=== PATIENT | male | born 1970 | race Caucasian/White ===

== ENCOUNTER 2016-08-05 17:17 | Emergency (ER) | payer OTHER ==
[~2016-08-05] VITALS: Ht 182.9 cm; Wt 130.0 kg
[~2016-08-05 17:17] MED LIST: 1-ME1LIQ PO; ATEN-104 PO; ATOR80TA PO; CITA-48 PO; GLIP10TA6 PO; GLUC1000 PO; LAMO25 PO; VITA-13
[2016-08-05 17:32] VITALS: BP 122/84; PULSE 97; RESP 18; TEMP 97.8; O2SAT 96
--- NOTE | 2016-08-05 17:40 | PD ---
HPI Chief Complaint: Chest Pain Time Seen by Provider: 17:31 Travel History International Travel<30 days: No Contact w/Intl Traveler<30days: No Traveled to known affect area: No History of Present Illness HPI 46-year-old male with history of hypertension, hyperlipidemia, type 2 diabetes, 1 pack per day smoker, here for evaluation of chest pain, lightheadedness, dizziness. Symptoms started about 45 minutes prior to arrival. Chest pain is substernal, radiates to his left shoulder and down his left arm, constant, 7 out of 10, described as a tightness, no modifying factors. No dyspnea. No history of DVT or PE. 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 No paresthesias or motor deficits. No fevers, chills, cough, or recent illness. He took aspirin 81 mg today. PFSH Past Medical History Cardiovascular Problems: Yes High Cholesterol: Yes Diabetes: Yes Diminished Hearing: No Endocrine: Yes Gastrointestinal Disorders: Yes (PANCREATITIS AUGUST 2013) Genitourinary: No Hepatitis: No Hiatal Hernia: No Hypertension: Yes Immune Disorder: No Musculoskeletal: Yes (RECENTLY HAND CUFFED. MILD SWELLING) Neurologic: Yes Psychiatric: Yes (Pt has an long history of psychiatric assistance staring at age 14) Reproductive: No Respiratory: No Immunizations Current: Yes Myocardial Infarction: Yes Pancreatitis: Yes Triglycerides - High: Yes Past Surgical History Abdominal Surgery: Yes (PANCREATIC PSUEDO CYST 2013) AICD: No Endocrine Surgery: Yes (PILONIDAL CYST REMOVAL X3) Joint Replacement: No Pacemaker: No Other Surgery: Yes Social History Alcohol Use: No Tobacco Use: Yes (1PPD) Substance Use: No (ALCOHOL OCC.) Allergies-Medications (Allergen,Severity, Reaction): Coded Allergies: Penicillin (Verified Allergy, Intermediate, 12/28/15) SWOLLEN TONGUE Reported Meds & Prescriptions Reported Meds & Active Scripts Active Reported Amlodipine (Amlodipine Besylate) 5 Mg Tab 5 Mg PO DAILY Jardiance (Empagliflozin) 25 Mg Tab 25 Mg PO DAILY Metformin (Metformin HCl) 1,000 Mg Tab 1,000 Mg PO BIDPC With meals Glipizide 10 Mg Tab 10 Mg PO DAILY Take 30 minutes before a meal Gabapentin 300 Mg Cap 300 Mg PO BID Atorvastatin (Atorvastatin Calcium) 40 Mg Tab 40 Mg PO HS Aspirin 81 Mg Tabdr 81 Mg PO DAILY Fenofibrate 145 Mg Tab 145 Mg PO DAILY Paxil (Paroxetine HCl) 20 Mg Tab 20 Mg PO DAILY Review of Systems Except as stated in HPI: all other systems reviewed are Neg Physical Exam Narrative GENERAL: Well-developed, well-nourished, comfortable, no acute distress. SKIN: Warm and dry. No rash. HEAD: Atraumatic. Normocephalic. EYES: Pupils equal and round. No scleral icterus. No injection or drainage. ENT: Mucous membranes pink and moist. NECK: Trachea midline. No JVD. CARDIOVASCULAR: Regular rate and rhythm. Distal pulses brisk and equal bilaterally. RESPIRATORY: No accessory muscle use. Clear to auscultation. Breath sounds equal bilaterally. GASTROINTESTINAL: Abdomen soft, non-tender, nondistended. MUSCULOSKELETAL: No obvious deformities. No clubbing. No cyanosis. No edema. NEUROLOGICAL: Awake and alert. No obvious cranial nerve deficits. Motor grossly within normal limits. Normal speech. PSYCHIATRIC: Appropriate mood and affect; insight and judgment normal. Data Data Last Documented VS Vital Signs Date Time Temp Pulse Resp B/P Pulse Ox O2 Delivery O2 Flow Rate FiO2 08/05/16 19:02 88 16 111/71 96 Room Air 08/05/16 17:32 97.8 Orders Basic Metabolic Panel (Bmp) (08/05/16 17:36) Ckmb (Isoenzyme) Profile (08/05/16 17:36) Complete Blood Count With Diff (08/05/16 17:36) Prothrombin Time / Inr (Pt) (08/05/16 17:36) Act Partial Throm Time (Ptt) (08/05/16 17:36) Troponin I (08/05/16 17:36) Chest, Single Ap (08/05/16 17:36) Ecg Monitoring (08/05/16 17:36) Bilateral Bp Monitoring (08/05/16 17:36) Iv Access Insert/Monitor (08/05/16 17:36) Oximetry (08/05/16 17:36) Aspirin Chew (Aspirin Chew) (08/05/16 17:45) Sodium Chloride 0.9% Flush (Ns Flush) (08/05/16 17:45) Nitroglycerin Sl (Nitrostat Sl) (08/05/16 17:45) Lipase (08/05/16 17:39) Electrocardiogram (08/05/16 17:24) Labs Laboratory Tests Test 08/05/16 17:40 White Blood Count 9.8 TH/MM3 Red Blood Count 5.44 MIL/MM3 Hemoglobin 16.3 GM/DL Hematocrit 48.2 % Mean Corpuscular Volume 88.7 FL Mean Corpuscular Hemoglobin 30.1 PG Mean Corpuscular Hemoglobin 33.9 % Concent Red Cell Distribution Width 12.7 % Platelet Count 238 TH/MM3 Mean Platelet Volume 11.3 FL Neutrophils (%) (Auto) 65.5 % Lymphocytes (%) (Auto) 23.2 % Monocytes (%) (Auto) 7.3 % Eosinophils (%) (Auto) 3.2 % Basophils (%) (Auto) 0.8 % Neutrophils # (Auto) 6.4 TH/MM3 Lymphocytes # (Auto) 2.3 TH/MM3 Monocytes # (Auto) 0.7 TH/MM3 Eosinophils # (Auto) 0.3 TH/MM3 Basophils # (Auto) 0.1 TH/MM3 CBC Comment DIFF FINAL Differential Comment Prothrombin Time 9.9 SEC Prothromb Time International 0.9 RATIO Ratio Activated Partial 31.4 SEC Thromboplast Time Sodium Level 142 MEQ/L Potassium Level 3.9 MEQ/L Chloride Level 109 MEQ/L Carbon Dioxide Level 26.2 MEQ/L Anion Gap 7 MEQ/L Blood Urea Nitrogen 12 MG/DL Creatinine 1.00 MG/DL Estimat Glomerular Filtration 81 ML/MIN Rate Random Glucose 99 MG/DL Calcium Level 8.8 MG/DL Total Creatine Kinase 87 U/L Troponin I LESS THAN 0.02 NG/ML Lipase 121 U/L [facility] Medical Decision Making Medical Screen Exam Complete: Yes Emergency Medical Condition: Yes Medical Record Reviewed: Yes Interpretation(s) EKG: Sinus, rate 75, normal axis, normal intervals, Q waves in inferior leads, no acute ischemic abnormality. Unchanged from prior. Differential Diagnosis ACS, PTX, PE, PNA, pericarditis Narrative Course Vital signs reviewed and are within normal limits. CBC is unremarkable. BMP is unremarkable. Cardiac enzymes are negative. Lipase is 121. Chest x-ray read as normal examination for patient of this age, no significant change has occurred. The patient was given aspirin and nitroglycerin. States his pain is somewhat improved. I told him out like to admit him to the chest pain center for further cardiac evaluation as he has several risk factors for cardiac disease. He tells me that he believes his pain is mainly from his left shoulder for which she is receiving physical therapy for adhesive capsulitis. He states he does not wish to stay in the hospital and would like to leave AMA. He has a capacity to leave AMA. He understands that there are risks to leaving AMA including but not limited to , permanent disability, [place], other. He was told that he could return to the emergency department at any time and should return for any concerning symptoms. PMD follow-up this week. AMA: The risks of leaving against medical advice without further evaluation treatment were discussed with the patient. These risks include cardiac dysfunction, cardiac dysrhythmia, possible heart attack, possible stroke or . The patient indicated understanding of these risks and appeared to have the capacity to make this decision. Diagnosis Primary Impression: Left against medical advice Additional Impression: Chest pain Qualified Code: R07.9 - Chest pain, unspecified type Referrals: Primary Care Physician 3 days Additional Instructions: Follow-up with your primary care physician in the next 2-3 days. Return to the emergency department for worsening symptoms or any other concerns. Disposition: 01 DISCHARGE HOME Condition: Stable Jeet Carter MD Aug 05, 2016 17:40
[2016-08-05 17:43] VITALS: O2SAT 98
[2016-08-05] MEDS ORDERED: SODIUM CHLORIDE 0.9% FLUSH 5 ML FLUSH IVF PRN (17:45)
[2016-08-05] MEDS ORDERED: ASPIRIN 81 MG CHEW TAB PO ONE (17:45)
[2016-08-05] MEDS: NITROGLYCERIN 0.4 MG SL 25 TABS/BTL SL SCH ×3 (17:50→18:01)
[2016-08-05] MEDS ORDERED: ASPI1TAB69 PO (17:51)
[2016-08-05] MEDS ORDERED: GABA300C5 PO (17:51)
[2016-08-05] MEDS ORDERED: PAXI20TA PO (17:51)
[2016-08-05] MEDS ORDERED: GLIP10TA6 PO (17:51)
[2016-08-05] MEDS ORDERED: EMPA1TAB3 PO (17:51)
[2016-08-05] MEDS ORDERED: AMLO5TAB2 PO (17:51)
[2016-08-05] MEDS ORDERED: FENO145T2 PO (17:51)
[2016-08-05] MEDS ORDERED: METF1000 PO (17:51)
[2016-08-05] MEDS ORDERED: ATOR40TA16 PO (17:51)
[2016-08-05 17:52] LABS: AUTOMATED NEUTROPHIL # 6.4 TH/MM3 (1.8-7.7); BASOPHIL # 0.1 TH/MM3 (0-0.2); BASOPHIL % 0.8 % (0.0-2.0); EOSINOPHIL # 0.3 TH/MM3 (0-0.4); EOSINOPHIL % 3.2 % (0.0-4.0); HEMATOCRIT 48.2 % (39.0-51.0); HEMO FLAGS DIFF FINAL; LYMPH % 23.2 % (9.0-44.0); LYMPHOCYTE # 2.3 TH/MM3 (1.0-4.8); MEAN CELL VOLUME 88.7 FL (80.0-100.0); MEAN CORPUSCULAR HEMOGLOBIN 30.1 PG (27.0-34.0); MEAN CORPUSCULAR HGB CONC 33.9 % (32.0-36.0); MONO % 7.3 % (0.0-8.0); NEUT % 65.5 % (16.0-70.0); PLATELET COUNT 238 TH/MM3 (150-450); RED BLOOD COUNT 5.44 MIL/MM3 (4.50-5.90); RED CELL DISTRIBUTION WIDTH 12.7 % (11.6-17.2); WHITE BLOOD COUNT 9.8 TH/MM3 (4.0-11.0)
[2016-08-05 18:01] LABS: CHLORIDE 109 MEQ/L (98-107); POTASSIUM 3.9 MEQ/L (3.5-5.1); SODIUM (NA) 142 MEQ/L (136-145)
[2016-08-05 18:04] LABS: ANION GAP 7 MEQ/L (5-15); BICARBONATE 26.2 MEQ/L (21.0-32.0)
[2016-08-05 18:05] VITALS: BP_SYST 122; BP_SYST 135; BP_DIAS 82; BP_DIAS 86
[2016-08-05 18:05] LABS: BLOOD UREA NITROGEN 12 MG/DL (7-18)
[2016-08-05 18:07] LABS: APTT (PATIENT) 31.4 SEC (24.3-30.1); INTERNATIONAL NORMALIZED RATIO 0.9 RATIO; PROTHROMBIN TIME - PATIENT 9.9 SEC (9.8-11.6)
[2016-08-05 18:08] LABS: GLOMERULAR FILTRATION RATE 81 ML/MIN (>89)
[2016-08-05 18:16] VITALS: BP 107/60; PULSE 94; RESP 18; O2SAT 93
[2016-08-05 18:16] LABS: CREATINE KINASE 87 U/L (39-308)
--- NOTE | 2016-08-05 18:53 | RADHPO ---
EXAM DATE/TIME: 08/05/2016 18:24 [facility] COMPARISON: CHEST SINGLE AP, December 28, 2015, 5:12. INDICATIONS : Chest pain. MEDICAL HISTORY : Myocardial infarction. Hypertension. Diabetes. SURGICAL HISTORY : None. ENCOUNTER: Initial ACUITY: 1 day PAIN SCORE: 8/10 LOCATION: Bilateral chest FINDINGS: A single view of the chest demonstrates the lungs to be symmetrically aerated without evidence of mas s, infiltrate or effusion. The cardiomediastinal contours are unremarkable. Osseous structures are intact. CONCLUSION: Normal examination for a patient of this age. No significant change has occurred. Aquiles Morales MD on August 05, 2016 at 18:51 Board Certified Radiologist. This report was verified electronically.
[2016-08-05 19:02] VITALS: BP 111/71; PULSE 88; RESP 16; O2SAT 96
--- NOTE | 2016-08-06 05:02 | EKG ---
Date Performed: 08/05/2016 Time Performed: 17:24:06 PTAGE: 46 years EKG: Sinus rhythm Possible inferior infarct - age undetermined Abnormal ECG NO SIGNIFICANT CHANGE FROM PRIOR ELECTROCA RDIOGRAM. PREVIOUS TRACING : 12/28/2015 07.56 DOCTOR: Jose Chow Interpretating Date/Time 08/06/2016 05:01:12
== END 2016-08-05 20:53 | disposition left against medical advice (07) ==
LOC: PHED 17:17
DX: R07.9 Chest pain, unspecified (principal); I10 Essential (primary) hypertension; E11.9 Type 2 diabetes mellitus without complications; E78.2 Mixed hyperlipidemia; F17.210 Nicotine dependence, cigarettes, uncomplicated; Z79.4 Long term (current) use of insulin
CPT/HCPCS: 71010; 80048; 82550; 83690; 84484; 85025; 85610; 85730; 93005; 99285

== ENCOUNTER 2016-10-07 15:02 | Emergency (ER) | payer OTHER ==
[~2016-10-07] VITALS: Ht 182.9 cm; Wt 127.0 kg
[~2016-10-07 15:02] MED LIST changes: -1-ME1LIQ PO; +AMLO5TAB2 PO; +ASPI1TAB69 PO; -ATEN-104 PO; +ATOR40TA16 PO; -ATOR80TA PO; -CITA-48 PO; +EMPA1TAB3 PO; +FENO145T2 PO; +GABA300C5 PO; -GLUC1000 PO; -LAMO25 PO; +METF1000 PO; +PAXI20TA PO; -VITA-13
[2016-10-07 15:05] VITALS: BP 134/92; PULSE 114; RESP 20; TEMP 98.7; O2SAT 98
--- NOTE | 2016-10-07 15:21 | PD ---
Physical Exam Time Seen by Provider: 15:17 Narrative Pt presents to the emergency department for evaluation of weak, dizzy, sweaty 1.5 months. Came in today because states he can't walk anymore without falling over. Denies chest pain or SOB. Denies fever. Slightly tachycardic 114 bpm. VSS. Patient awaiting bed placement. Data Data Last Documented VS Vital Signs Date Time Temp Pulse Resp B/P Pulse Ox O2 Delivery O2 Flow Rate FiO2 10/07/16 15:05 98.7 114 20 134/92 98 Room Air MDM Supervised Visit with KELI: Sarah Beth Medley Oct 07, 2016 15:21
[2016-10-07 15:35] VITALS: RESP 18; O2SAT 98
[2016-10-07] MEDS ORDERED: ATEN100T PO (15:36)
[2016-10-07 15:51] VITALS: BP_SYST 125; BP_SYST 129; BP_SYST 158; BP_DIAS 79; BP_DIAS 80; BP_DIAS 81; RESP 16; RESP 17
--- NOTE | 2016-10-07 15:53 | PD ---
HPI Chief Complaint: Dizziness Time Seen by Provider: 15:48 Travel History International Travel<30 days: No Contact w/Intl Traveler<30days: No Traveled to known affect area: No History of Present Illness HPI 46-year-old male that presents to the ED for evaluation of dizziness. Per patient she's had the dizziness for about a month and a half now. Per patient comes and goes but is becoming more consistent. Per patient standing makes it worse but he also states that he has a when he lays down as well as when he sits. Per patient nothing seems to make it better. It seems to come on its own and leave on its own. Per patient she is not really spinning but he's described more as a lightheadedness about to faint kind of symptom rather than vertigo. Per patient he does get headaches as well as some blurry vision when he has the symptoms. Otherwise he has no other symptoms. Per patient is hard for him to walk where he gets the symptoms as he feels that he is about to pass out. Per patient he is tired to his doctor about this but his doctor per patient seems to be more concerned about his possible kidney injury/disease. Patient does have a history of heart disease in the past and was recently diagnosed with coronary artery disease. Patient also is diabetic and has a history of hypertension. He denies any other medical problems. Allergies to penicillin. Has not taken anything for this. Per patient his doctor the check his ears did not find anything there. At this time he denies any pain or symptoms other than some lightheadedness. Denies any trauma or injury. Patient does have a history of chronic pancreatitis and states that he's had some abdominal pain on and off but nothing at this time. PFSH Past Medical History Cardiovascular Problems: Yes High Cholesterol: Yes Diabetes: Yes Patient Takes Glucophage: Yes Diminished Hearing: No Endocrine: Yes Gastrointestinal Disorders: Yes (PANCREATITIS AUGUST 2013) Genitourinary: No Hepatitis: No Hiatal Hernia: No Hypertension: Yes Immune Disorder: No Musculoskeletal: Yes Neurologic: Yes Psychiatric: Yes (Pt has an long history of psychiatric assistance staring at age 14) Reproductive: No Respiratory: No Immunizations Current: Yes Myocardial Infarction: Yes Pancreatitis: Yes Triglycerides - High: Yes Tetanus Vaccination: > 5 Years Influenza Vaccination: No Past Surgical History Abdominal Surgery: Yes (PANCREATIC PSUEDO CYST 2013) AICD: No Endocrine Surgery: Yes (PILONIDAL CYST REMOVAL X3) Joint Replacement: No Pacemaker: No Other Surgery: Yes Social History Alcohol Use: No Tobacco Use: Yes (1PPD) Substance Use: No Allergies-Medications (Allergen,Severity, Reaction): Coded Allergies: Penicillin (Verified Allergy, Intermediate, swollen, 10/07/16) SWOLLEN TONGUE Reported Meds & Prescriptions Reported Meds & Active Scripts Active Reported Atenolol 100 Mg Tab 100 Mg PO DAILY Amlodipine (Amlodipine Besylate) 5 Mg Tab 10 Mg PO DAILY Metformin (Metformin HCl) 1,000 Mg Tab 1,000 Mg PO BIDPC With meals Glipizide 10 Mg Tab 10 Mg PO DAILY Take 30 minutes before a meal Atorvastatin (Atorvastatin Calcium) 40 Mg Tab 80 Mg PO HS Aspirin 81 Mg Tabdr 81 Mg PO DAILY Fenofibrate 145 Mg Tab 145 Mg PO DAILY Paxil (Paroxetine HCl) 20 Mg Tab 20 Mg PO DAILY Review of Systems Except as stated in HPI: all other systems reviewed are Neg Physical Exam Narrative GENERAL: SKIN: Warm and dry. HEAD: Atraumatic. Normocephalic. EYES: Pupils equal and round 4 mm reactive to light and accommodation. No scleral icterus. No injection or drainage. ENT: No nasal bleeding or discharge. Mucous membranes pink and moist. Tongue is midline. No blood deviation. Right TM does appear to be erythematous compared to the left but no sign of bulging. No discharge from the ear canals bilaterally. No mastoid tenderness. No lymphadenopathy noted. NECK: Trachea midline. No JVD. CARDIOVASCULAR: Regular rate and rhythm. RESPIRATORY: No accessory muscle use. Clear to auscultation. Breath sounds equal bilaterally. GASTROINTESTINAL: Abdomen soft, non-tender, nondistended. Hepatic and splenic margins not palpable. MUSCULOSKELETAL: Extremities without clubbing, cyanosis, or edema. No obvious deformities. Full range of motion of the upper and lower extremities bilaterally. 2+ pulses bilaterally. No lumbar, thoracic, cervical spine tenderness to palpation. NEUROLOGICAL: Awake and alert. No obvious cranial nerve deficits. Motor grossly within normal limits. Five out of 5 muscle strength in the arms and legs. Normal speech. PSYCHIATRIC: Appropriate mood and affect; insight and judgment normal. Data Data Last Documented VS Vital Signs Date Time Temp Pulse Resp B/P Pulse Ox O2 Delivery O2 Flow Rate FiO2 10/07/16 15:51 98 16 158/80 102 17 129/79 102 17 125/81 10/07/16 15:31 98 Room Air 10/07/16 15:05 98.7 Orders Electrocardiogram (10/07/16 15:38) Complete Blood Count With Diff (10/07/16 15:38) Comprehensive Metabolic Panel (10/07/16 15:38) Ckmb (Isoenzyme) Profile (10/07/16 15:38) Troponin I (10/07/16 15:38) Prothrombin Time / Inr (Pt) (10/07/16 15:38) Act Partial Throm Time (Ptt) (10/07/16 15:38) Lipase (10/07/16 15:38) Urinalysis - C+S If Indicated (10/07/16 15:38) Magnesium (Mg) (10/07/16 15:38) Thyroid Stimulating Hormone (10/07/16 15:38) Chest, Single Ap (10/07/16 15:38) Ct Brain W/O Iv Contrast(Rout) (10/07/16 15:38) Iv Access Insert/Monitor (10/07/16 15:38) Ecg Monitoring (10/07/16 15:38) Oximetry (10/07/16 15:38) Orthostatic Vital Signs (10/07/16 15:38) Sodium Chlor 0.9% 1000 Ml Inj (Ns 1000 M (10/07/16 16:58) Labs Laboratory Tests Test 10/07/16 10/07/16 15:45 16:00 White Blood Count 10.1 TH/MM3 Red Blood Count 5.33 MIL/MM3 Hemoglobin 16.4 GM/DL Hematocrit 47.5 % Mean Corpuscular Volume 89.2 FL Mean Corpuscular Hemoglobin 30.7 PG Mean Corpuscular Hemoglobin 34.4 % Concent Red Cell Distribution Width 13.1 % Platelet Count 228 TH/MM3 Mean Platelet Volume 11.0 FL Neutrophils (%) (Auto) 66.9 % Lymphocytes (%) (Auto) 22.6 % Monocytes (%) (Auto) 6.6 % Eosinophils (%) (Auto) 2.8 % Basophils (%) (Auto) 1.1 % Neutrophils # (Auto) 6.7 TH/MM3 Lymphocytes # (Auto) 2.3 TH/MM3 Monocytes # (Auto) 0.7 TH/MM3 Eosinophils # (Auto) 0.3 TH/MM3 Basophils # (Auto) 0.1 TH/MM3 CBC Comment DIFF FINAL Differential Comment Prothrombin Time 9.9 SEC Prothromb Time International 0.9 RATIO Ratio Activated Partial 32.1 SEC Thromboplast Time Sodium Level 138 MEQ/L Potassium Level 4.0 MEQ/L Chloride Level 105 MEQ/L Carbon Dioxide Level 25.1 MEQ/L Anion Gap 8 MEQ/L Blood Urea Nitrogen 9 MG/DL Creatinine 1.00 MG/DL Estimat Glomerular Filtration 81 ML/MIN Rate Random Glucose 179 MG/DL Calcium Level 9.6 MG/DL Magnesium Level 2.1 MG/DL Total Bilirubin 0.3 MG/DL Aspartate Amino Transf 23 U/L (AST/SGOT) Alanine Aminotransferase 50 U/L (ALT/SGPT) Alkaline Phosphatase 81 U/L Total Creatine Kinase 99 U/L Troponin I LESS THAN 0.02 NG/ML Total Protein 8.0 GM/DL Albumin 4.2 GM/DL Lipase 111 U/L Thyroid Stimulating Hormone 1.010 uIU/ML 3rd Gen Urine Color YELLOW Urine Turbidity HAZY Urine pH 7.5 Urine Specific [place] 1.020 Urine Protein 30 mg/dL Urine Glucose (UA) 1000 mg/dL Urine Ketones NEG mg/dL Urine Occult Blood NEG Urine Nitrite NEG Urine Bilirubin NEG Urine Urobilinogen LESS THAN 2.0 MG/DL Urine Leukocyte Esterase NEG Urine RBC 1 /hpf Urine WBC 2 /hpf Urine Amorphous Sediment RARE Urine Bacteria RARE /hpf Urine Hyaline Casts 2 /lpf Urine Mucus FEW /lpf Microscopic Urinalysis Comment CULT NOT INDICATED MDM Medical Decision Making Medical Screen Exam Complete: Yes Emergency Medical Condition: Yes Medical Record Reviewed: Yes Interpretation(s) CBC & BMP Diagram 10/07/16 15:[address] 10/07/16 1538 Signed Impressions: Service Date/Time: Friday, October 07, 2016 16:21 - CONCLUSION: Normal examination. Leobardo Chris MD Chest X-Ray 10/07/16 1538 Signed Impressions: Service Date/Time: Friday, October 07, 2016 15:58 - CONCLUSION: No acute disease. Leobardo Chris MD TSH WNL troponin WNL EKG shows sinus rhythm with no sign of ischemia or arrhythmia. Coags within normal limits. Differential Diagnosis Dizziness versus vertigo versus electrolyte abnormality versus kidney failure versus pancreatitis versus diabetes versus orthostatic hypotension versus CAD Narrative Course 46-year-old male that presents to the ED for evaluation of dizziness. Patient was properly examined and was found to have signs and symptoms consistent appears to be dizziness. Unclear to this time. From what patient [place] appears that his PCP is working him up for possible kidney failure. At this time I recommend labs and imaging patient is in agreement with this. Labs and imaging showed no sign of acute disease at this time. Patient did have positive orthostatics with a drop of 1:30 points. Recommendations for admission. My attending Dr. Booker evaluated the patient and she agrees with plan. She wants us to give her 1 dose of fluids and see if he patient feels better. Before patient could be reassessed apparently he left AMA. Unfortunately time that he left I was taking care of another patient so was not able to talk to the patient but per nurse patient was made aware of risks about leaving. My attending was made aware of this. Diagnosis Primary Impression: Left against medical advice Alexi Lara Oct 07, 2016 15:53
--- NOTE | 2016-10-07 16:14 | RADRPT ---
EXAM DATE/TIME: 10/07/2016 15:58 [facility] COMPARISON: CHEST SINGLE AP, August 05, 2016, 18:24. INDICATIONS : Syncope, dizziness. MEDICAL HISTORY : Myocardial infarction. high blood pressure, coronary artery disease SURGICAL HISTORY : Coronary artery stent. ENCOUNTER: Initial ACUITY: 1 day PAIN SCORE: 0/10 LOCATION: Bilateral chest FINDINGS: A single view of the chest demonstrates the lungs to be symmetrically aerated without evidence of mas s, infiltrate or effusion. The cardiomediastinal contours are unremarkable. Osseous structures are intact. CONCLUSION: No acute disease. Leobardo Chris MD on October 07, 2016 at 16:12 Board Certified Radiologist. This report was verified electronically.
[2016-10-07 16:16] LABS: AUTOMATED NEUTROPHIL # 6.7 TH/MM3 (1.8-7.7); BASOPHIL # 0.1 TH/MM3 (0-0.2); BASOPHIL % 1.1 % (0.0-2.0); EOSINOPHIL # 0.3 TH/MM3 (0-0.4); EOSINOPHIL % 2.8 % (0.0-4.0); HEMATOCRIT 47.5 % (39.0-51.0); HEMO FLAGS DIFF FINAL; LYMPH % 22.6 % (9.0-44.0); LYMPHOCYTE # 2.3 TH/MM3 (1.0-4.8); MEAN CELL VOLUME 89.2 FL (80.0-100.0); MEAN CORPUSCULAR HEMOGLOBIN 30.7 PG (27.0-34.0); MEAN CORPUSCULAR HGB CONC 34.4 % (32.0-36.0); MONO % 6.6 % (0.0-8.0); NEUT % 66.9 % (16.0-70.0); PLATELET COUNT 228 TH/MM3 (150-450); RED BLOOD COUNT 5.33 MIL/MM3 (4.50-5.90); RED CELL DISTRIBUTION WIDTH 13.1 % (11.6-17.2); WHITE BLOOD COUNT 10.1 TH/MM3 (4.0-11.0)
[2016-10-07 16:22] LABS: APTT (PATIENT) 32.1 SEC (24.3-30.1); INTERNATIONAL NORMALIZED RATIO 0.9 RATIO; PROTHROMBIN TIME - PATIENT 9.9 SEC (9.8-11.6)
--- NOTE | 2016-10-07 16:36 | RADRPT ---
EXAM DATE/TIME: 10/07/2016 16:21 [facility] COMPARISON: No previous studies available for comparison. INDICATIONS : Headache, dizziness, light sensitivity RADIATION DOSE: 48.65 CTDIvol (mGy) MEDICAL HISTORY : Seizures. Cardiovascular disease Diabetes mellitus type 1. SURGICAL HISTORY : None. ENCOUNTER: Initial ACUITY: 1 day PAIN SCALE: 6/10 LOCATION: cranial TECHNIQUE: Multiple contiguous axial images were obtained of the head. Using automated exposure control and adj ustment of the mA and/or kV according to patient size, radiation dose was kept as low as reasonably a chievable to obtain optimal diagnostic quality images. FINDINGS: CEREBRUM: The ventricles are normal for age. No evidence of midline shift, mass lesion, hemorrhage or acute in farction. No extra-axial fluid collections are seen. POSTERIOR FOSSA: The cerebellum and brainstem are intact. The 4th ventricle is midline. The cerebellopontine angle i s unremarkable. EXTRACRANIAL: The visualized portion of the orbits is intact. SKULL: The calvaria is intact. No evidence of skull fracture. CONCLUSION: Normal examination. Leobardo Chris MD on October 07, 2016 at 16:34 Board Certified Radiologist. This report was verified electronically.
[2016-10-07 16:42] LABS: ANION GAP 8 MEQ/L (5-15); AST (GOT) 23 U/L (15-37); BICARBONATE 25.1 MEQ/L (21.0-32.0); BLOOD UREA NITROGEN 9 MG/DL (7-18); CHLORIDE 105 MEQ/L (98-107); GLOMERULAR FILTRATION RATE 81 ML/MIN (>89); MAGNESIUM 2.1 MG/DL (1.5-2.5); SODIUM (NA) 138 MEQ/L (136-145)
[2016-10-07 16:46] LABS: BACTERIA, URINE RARE /hpf; BLOOD, URINE NEG (NEG); COMMENT (UR) CULT NOT INDICATED; CULTURE IF INDICATED CULT NOT INDICATED; GLUCOSE,URINE 1000 mg/dL (NEG); HYALINE CAST, URINE 2 /lpf (RARE); KETONE, URINE NEG (NEG); MUCUS URINE FEW /lpf (OCC); NITRITE,URINE NEG (NEG); PH, URINE 7.5 (5.0-8.5); URINE COLOR YELLOW (YELLW/STRAW)
[2016-10-07 16:50] LABS: ALKALINE PHOSPHATASE 81 U/L (45-117); ALT (GPT) 50 U/L (12-78); TOTAL BILIRUBIN ADULT 0.3 MG/DL (0.2-1.0)
[2016-10-07 16:51] LABS: CREATINE KINASE 99 U/L (39-308)
[2016-10-07] MEDS ORDERED: SODIUM CHLOR 0.9% 1000 ML INJ 1,000 ML IV SCH (16:58)
[2016-10-07] MEDS ORDERED: ONDANSETRON HCL 4 MG/2 ML VIAL IVP PRN (18:00)
[2016-10-07] MEDS ORDERED: MAGNESIUM HYDROXIDE SUSP 30 ML CUP PO PRN (18:00)
[2016-10-07] MEDS ORDERED: ACETAMINOPHEN 325 MG TAB PO PRN (18:00)
[2016-10-07] MEDS ORDERED: ENALAPRILAT 1.25 MG/ML VIAL IV PRN (18:00)
[2016-10-07] MEDS ORDERED: NALOXONE HCL 0.4 MG/ML AMP IV PRN (18:00)
[2016-10-07] MEDS ORDERED: SODIUM CHLORIDE 0.9% FLUSH 10 ML FLUSH IV FLUSH PRN (18:00)
[2016-10-07] MEDS ORDERED: cloNIDine HCL 0.2 MG TAB PO PRN (18:00)
--- NOTE | 2016-10-07 18:33 | PD ---
Physical Exam Date Seen by Provider: Oct 07, 2016 Time Seen by Provider: 16:00 Narrative I, Dr. Gonzalez, have reviewed the advance practice practitioner's documentation and am in agreement, met with the patient face to face, made the diagnosis, and the medical decision making was done by me. *My assessment and Findings: Patient seen and evaluated with PA, please see PA for further details. Patient has been dizzy for several weeks, and appears to be orthostatic on evaluation. He does not any focal neurological deficits. Lab work ordered did not show any signs of significant lateral light abnormalities except for mild hyperglycemia. He does not have any signs of sepsis or UTI. His CAT scan the brain is negative for any signs of acute intracranial processes. At this point, patient was ordered for IV fluids and reevaluation. I have talked to the patient regarding findings and the fact that we have ruled out several significant acute issues. Symptoms are not indicative of a stroke or an obvious vertigo. Patient does appear to be fairly symptomatic on standing up and his vital signs do show blood pressure depressions. He is not on any new medications. We have talked to him regarding possible admission as an observation for further evaluation if IV fluids did not improve symptoms. EKG shows NSR, no ST elevation or depression, and no arrhythmias. No significant T-wave inversions. Laboratory Tests Test 10/07/16 10/07/16 15:45 16:00 Activated Partial 32.1 SEC Thromboplast Time (24.3-30.1) Estimat Glomerular Filtration 81 ML/MIN (>89) Rate Random Glucose 179 MG/DL (74-106) Troponin I LESS THAN 0.02 NG/ML (0.02-0.05) Urine Turbidity HAZY (CLEAR) Urine Protein 30 mg/dL (NEG-TRACE) Urine Glucose (UA) 1000 mg/dL (NEG) Urine Bacteria RARE /hpf (NONE) Urine Mucus FEW /lpf (OCC) Last [address] 10/07/161537 Signed Impressions: Service Date/Time: Friday, October 07, 2016 16:21 - CONCLUSION: Normal examination. Leobardo Chris MD Chest X-Ray 10/07/168 Signed Impressions: Service Date/Time: Friday, October 07, 2016 15:58 - CONCLUSION: No acute disease. Leobardo Chris MD However, before I was able to return to evaluate the patient after IV fluids, the patient states that he wants a more definitive diagnosis now and does not want to be evaluated further, and decided to leave AGAINST MEDICAL ADVICE before I or my PA was able to return to talk to the patient.AMA: The risks of leaving against medical advice without further evaluation treatment were discussed with the patient. These risks include cardiac dysfunction, cardiac dysrhythmia, possible heart attack, possible stroke or . The patient indicated understanding of these risks and appeared to have the capacity to make this decision. Data Data Last Documented VS Vital Signs Date Time Temp Pulse Resp B/P Pulse Ox O2 Delivery O2 Flow Rate FiO2 10/07/16 15:51 98 16 158/80 102 17 129/79 102 17 125/81 10/07/16 15:31 98 Room Air 10/07/16 15:05 98.7 Orders Electrocardiogram (10/07/16 15:38) Complete Blood Count With Diff (10/07/16 15:38) Comprehensive Metabolic Panel (10/07/16 15:38) Ckmb (Isoenzyme) Profile (10/07/16 15:38) Troponin I (10/07/16 15:38) Prothrombin Time / Inr (Pt) (10/07/16 15:38) Act Partial Throm Time (Ptt) (10/07/16 15:38) Lipase (10/07/16 15:38) Urinalysis - C+S If Indicated (10/07/16 15:38) Magnesium (Mg) (10/07/16 15:38) Thyroid Stimulating Hormone (10/07/16 15:38) Chest, Single Ap (10/07/16 15:38) Ct Brain W/O Iv Contrast(Rout) (10/07/16 15:38) Iv Access Insert/Monitor (10/07/16 15:38) Ecg Monitoring (10/07/16 15:38) Oximetry (10/07/16 15:38) Orthostatic Vital Signs (10/07/16 15:38) Sodium Chlor 0.9% 1000 Ml Inj (Ns 1000 M (10/07/16 16:58) Place In Observation (10/07/16 ) Code Status (10/07/16 17:53) Vital Signs (Adult) Q4H (10/07/16 17:53) Activity Oob With Assistance (10/07/16 17:53) Health Safety Instructor / Telemetry .CONTINUOUS (10/07/16 17:53) Diet 1800 Ada Cons Carb (10/07/16 Dinner) Sodium Chloride 0.9% Flush (Ns Flush) (10/07/16 18:00) Sodium Chloride 0.9% Flush (Ns Flush) (10/07/16 21:00) Acetaminophen (Tylenol) (10/07/16 18:00) Ondansetron Inj (Zofran Inj) (10/07/16 18:00) Magnesium Hydroxide Liq (Milk Of Magnesi (10/07/16 18:00) Basic Metabolic Panel (Bmp) (10/08/16 06:00) Pt Request For Service (10/07/16 17:53) Scd Bilateral/Knee High ASHLEY.BID (10/07/16 17:53) Naloxone Inj (Narcan Inj) (10/07/16 18:00) Echo 2d Comp W/Dopp(Routine) (10/07/16 ) Holter Monitor Recording (10/07/16 ) Free Thyroxine (T4) (10/07/16 17:53) Rapid Plasma Regin (Rpr) W Ttr (10/07/16 17:53) Vitamin B12 (10/07/16 17:53) Folate, Serum (10/07/16 17:53) Ammonia (10/07/16 17:53) Us Carotid Arteries Comp Bilat (10/07/16 ) Mri Brain W&W/O Contrast (10/07/16 ) Mra Brain W/O Contrast (Cow) (10/07/16 ) Clonidine (Catapres) (10/07/16 18:00) Enalaprilat Inj (Vasotec Inj) (10/07/16 18:00) Ob/Psych Drug Screen, Urine (10/07/16 18:00) Labs Laboratory Tests Test 10/07/16 10/07/16 15:45 16:00 White Blood Count 10.1 TH/MM3 Red Blood Count 5.33 MIL/MM3 Hemoglobin 16.4 GM/DL Hematocrit 47.5 % Mean Corpuscular Volume 89.2 FL Mean Corpuscular Hemoglobin 30.7 PG Mean Corpuscular Hemoglobin 34.4 % Concent Red Cell Distribution Width 13.1 % Platelet Count 228 TH/MM3 Mean Platelet Volume 11.0 FL Neutrophils (%) (Auto) 66.9 % Lymphocytes (%) (Auto) 22.6 % Monocytes (%) (Auto) 6.6 % Eosinophils (%) (Auto) 2.8 % Basophils (%) (Auto) 1.1 % Neutrophils # (Auto) 6.7 TH/MM3 Lymphocytes # (Auto) 2.3 TH/MM3 Monocytes # (Auto) 0.7 TH/MM3 Eosinophils # (Auto) 0.3 TH/MM3 Basophils # (Auto) 0.1 TH/MM3 CBC Comment DIFF FINAL Differential Comment Prothrombin Time 9.9 SEC Prothromb Time International 0.9 RATIO Ratio Activated Partial 32.1 SEC Thromboplast Time Sodium Level 138 MEQ/L Potassium Level 4.0 MEQ/L Chloride Level 105 MEQ/L Carbon Dioxide Level 25.1 MEQ/L Anion Gap 8 MEQ/L Blood Urea Nitrogen 9 MG/DL Creatinine 1.00 MG/DL Estimat Glomerular Filtration 81 ML/MIN Rate Random Glucose 179 MG/DL Calcium Level 9.6 MG/DL Magnesium Level 2.1 MG/DL Total Bilirubin 0.3 MG/DL Aspartate Amino Transf 23 U/L (AST/SGOT) Alanine Aminotransferase 50 U/L (ALT/SGPT) Alkaline Phosphatase 81 U/L Total Creatine Kinase 99 U/L Troponin I LESS THAN 0.02 NG/ML Total Protein 8.0 GM/DL Albumin 4.2 GM/DL Lipase 111 U/L Thyroid Stimulating Hormone 1.010 uIU/ML 3rd Gen Urine Color YELLOW Urine Turbidity HAZY Urine pH 7.5 Urine Specific [place] 1.020 Urine Protein 30 mg/dL Urine Glucose (UA) 1000 mg/dL Urine Ketones NEG mg/dL Urine Occult Blood NEG Urine Nitrite NEG Urine Bilirubin NEG Urine Urobilinogen LESS THAN 2.0 MG/DL Urine Leukocyte Esterase NEG Urine RBC 1 /hpf Urine WBC 2 /hpf Urine Amorphous Sediment RARE Urine Bacteria RARE /hpf Urine Hyaline Casts 2 /lpf Urine Mucus FEW /lpf Microscopic Urinalysis Comment CULT NOT INDICATED MDM Medical Record Reviewed: Yes Supervised Visit with KELI: Yes Diagnosis Primary Impression: Left against medical advice Additional Impression: Orthostasis Disposition: 07 AGAINST MEDICAL ADVICE Condition: Stable Lashae Gonzalez MD Oct 07, 2016 18:33
[2016-10-07 19:31] LABS: FREE T4 1.23 NG/DL (0.76-1.46)
[2016-10-07] MEDS ORDERED: SODIUM CHLORIDE 0.9% FLUSH 10 ML FLUSH IV FLUSH SCH (21:00)
--- NOTE | 2016-10-09 07:27 | EKG ---
Date Performed: 10/07/2016 Time Performed: 15:50:24 PTAGE: 46 years EKG: SINUS TACHYCARDIA INFERIOR MYOCARDIAL INFARCTION ANTEROLATERAL MYOCARDIAL INFARCTION ABNORM AL ECG Compared to PREVIOUS TRACING , the sinus rate has increased and the R-wave progression is worse. PREV IOUS TRACIN08/05/2016 17.24 DOCTOR: Peyman Easley Interpretating Date/Time 10/09/2016 07:26:37
== END 2016-10-07 17:28 | disposition left against medical advice (07) ==
LOC: NEPE 15:02
DX: R42 Dizziness and giddiness (principal); R51 Headache; H53.8 Other visual disturbances; R00.0 Tachycardia, unspecified; I10 Essential (primary) hypertension; I25.10 Atherosclerotic heart disease of native coronary artery without angina pectoris; I25.2 Old myocardial infarction; E11.9 Type 2 diabetes mellitus without complications; F17.200 Nicotine dependence, unspecified, uncomplicated; Z79.84 Long term (current) use of oral hypoglycemic drugs; Z79.899 Other long term (current) drug therapy
CPT/HCPCS: 70450; 71010; 80053; 81001; 82550; 82607; 82746; 83690; 83735; 84439; 84443; 84484; 85025; 85610; 85730; 93005; 99284; J7030

== ENCOUNTER 2017-08-26 02:53 | Emergency (ER) | payer OTHER ==
[~2017-08-26] VITALS: Ht 182.9 cm; Wt 105.0 kg
[~2017-08-26 02:53] MED LIST changes: +ATEN100T PO; -EMPA1TAB3 PO; -GABA300C5 PO
[2017-08-26 03:02] VITALS: BP 142/87; PULSE 92; RESP 18; TEMP 98.5; TEMP 99; O2SAT 96
[2017-08-26 03:47] LABS: BILIRUBIN, URINE NEG (NEG); BLOOD, URINE NEG (NEG); GLUCOSE,URINE NEG (NEG); KETONE, URINE NEG (NEG); NITRITE,URINE NEG (NEG); PH, URINE 5.5 (5.0-8.5); SQUAMOUS EPITHELIAL CELL URINE <1 /hpf (0-5); URINE COLOR LIGHT-YELLOW (YELLW/STRAW); URINE LEUKOCYTE ESTERASE NEG (NEG)
[2017-08-26 03:48] LABS: AUTOMATED NEUTROPHIL # 6.6 TH/MM3 (1.8-7.7); BASOPHIL # 0.1 TH/MM3 (0-0.2); BASOPHIL % 1.2 % (0.0-2.0); EOSINOPHIL # 0.6 TH/MM3 (0-0.4); EOSINOPHIL % 4.7 % (0.0-4.0); HEMATOCRIT 46.3 % (39.0-51.0); LYMPHOCYTE # 3.6 TH/MM3 (1.0-4.8); MEAN CELL VOLUME 92.3 FL (80.0-100.0); MEAN CORPUSCULAR HEMOGLOBIN 31.9 PG (27.0-34.0); MEAN CORPUSCULAR HGB CONC 34.5 % (32.0-36.0); MEAN PLATELET VOLUME 10.1 FL (7.0-11.0); MONO % 8.3 % (0.0-8.0); NEUT % 55.8 % (16.0-70.0); PLATELET COUNT 266 TH/MM3 (150-450); RED BLOOD COUNT 5.02 MIL/MM3 (4.50-5.90); RED CELL DISTRIBUTION WIDTH 13.6 % (11.6-17.2); WHITE BLOOD COUNT 11.9 TH/MM3 (4.0-11.0)
[2017-08-26 04:06] LABS: ALBUMIN 4.1 GM/DL (3.4-5.0); ALKALINE PHOSPHATASE 67 U/L (45-117); ALT (GPT) 27 U/L (12-78); AST (GOT) 15 U/L (15-37); BICARBONATE 22.6 MEQ/L (21.0-32.0); BLOOD UREA NITROGEN 9 MG/DL (7-18); CALCIUM 8.9 MG/DL (8.5-10.1); CHLORIDE 109 MEQ/L (98-107); CREATININE 0.87 MG/DL (0.60-1.30); GLOMERULAR FILTRATION RATE 95 ML/MIN (>89); GLUCOSE,RANDOM 108 MG/DL (74-106); SODIUM (NA) 142 MEQ/L (136-145); TOTAL BILIRUBIN ADULT 0.3 MG/DL (0.2-1.0); TOTAL PROTEIN 7.9 GM/DL (6.4-8.2)
[2017-08-26 04:08] LABS: ACETAMINOPHEN LESS THAN 2.0 MCG/ML (10.0-30.0)
--- NOTE | 2017-08-26 04:35 | PD ---
HPI Chief Complaint: Psychiatric Symptoms Time Seen by Provider: 03:10 Travel History International Travel<30 days: No Contact w/Intl Traveler<30days: No Traveled to known affect area: No History of Present Illness HPI Patient is a 47-year-old male presenting to the emergency department under Vidal act for psychiatric evaluation. Patient allegedly called suicide hotline. He was brought in by the police and states he is no longer suicidal. He reports a history of bipolar disorder, he states medications do not work for him and he wants to try medical marijuana which he states he has been approved for. He has no physical complaints at this time. He denies any previous suicide attempt or current plan. He further denies any hallucinations or delusions. PFSH Past Medical History Cardiovascular Problems: Yes High Cholesterol: Yes Diabetes: Yes Patient Takes Glucophage: No Diminished Hearing: No Endocrine: Yes Gastrointestinal Disorders: Yes (PANCREATITIS AUGUST 2013) Genitourinary: No Hepatitis: No Hiatal Hernia: No Hypertension: Yes Immune Disorder: No Medical other: No Musculoskeletal: Yes Neurologic: Yes Psychiatric: Yes (Pt has an long history of psychiatric assistance staring at age 14) Reproductive: No Respiratory: No Immunizations Current: Yes Myocardial Infarction: Yes Pancreatitis: Yes Triglycerides - High: Yes Tetanus Vaccination: Unknown Influenza Vaccination: No Past Surgical History Abdominal Surgery: Yes (PANCREATIC PSUEDO CYST 2013) AICD: No Endocrine Surgery: Yes (PILONIDAL CYST REMOVAL X3) Joint Replacement: No Pacemaker: No Other Surgery: Yes Social History Alcohol Use: No Tobacco Use: Yes (1PPD) Substance Use: No Allergies-Medications (Allergen,Severity, Reaction): Coded Allergies: penicillin G (Unverified Allergy, Intermediate, swollen, 08/26/17) SWOLLEN TONGUE Reported Meds & Prescriptions Reported Meds & Active Scripts Active Reported Atenolol 100 Mg Tab 100 Mg PO DAILY Amlodipine (Amlodipine Besylate) 5 Mg Tab 10 Mg PO DAILY Metformin (Metformin HCl) 1,000 Mg Tab 1,000 Mg PO BIDPC With meals Glipizide 10 Mg Tab 10 Mg PO DAILY Take 30 minutes before a meal Atorvastatin (Atorvastatin Calcium) 40 Mg Tab 80 Mg PO HS Fenofibrate 145 Mg Tab 145 Mg PO DAILY Review of Systems Except as stated in HPI: all other systems reviewed are Neg Psychiatric: Positive: Depression, Suicidal Ideations, Mood Disorder Physical Exam Narrative GENERAL: Overweight, well-developed, alert male. Presenting in no acute distress. SKIN: Warm and dry. HEAD: Atraumatic. Normocephalic. EYES: Pupils equal and round. No scleral icterus. No injection or drainage. ENT: No nasal bleeding or discharge. Mucous membranes pink and moist. NECK: Trachea midline. No JVD. CARDIOVASCULAR: Regular rate and rhythm. RESPIRATORY: No accessory muscle use. Clear to auscultation. Breath sounds equal bilaterally. GASTROINTESTINAL: Abdomen soft, non-tender, nondistended. Hepatic and splenic margins not palpable. MUSCULOSKELETAL: Extremities without clubbing, cyanosis, or edema. No obvious deformities. NEUROLOGICAL: Awake and alert. No obvious cranial nerve deficits. Motor grossly within normal limits. Five out of 5 muscle strength in the arms and legs. Normal speech. PSYCHIATRIC: Appropriate mood and affect; insight and judgment normal. Data Data Last Documented VS Vital Signs Date Time Temp Pulse Resp B/P (MAP) Pulse Ox O2 Delivery O2 Flow Rate FiO2 08/26/17 03:02 99.0 92 18 142/87 (105) 96 Orders Orders Complete Blood Count With Diff (08/26/17 03:11) Comprehensive Metabolic Panel (08/26/17 03:11) Thyroid Stimulating Hormone (08/26/17 03:11) Urinalysis - C+S If Indicated (08/26/17 03:11) Psych Screen (08/26/17 03:11) Drug Screen, Random Urine (08/26/17 03:11) Alcohol (Ethanol) (08/26/17 03:11) Salicylates (Aspirin) (08/26/17 03:11) Tylenol (Acetaminophen) (08/26/17 03:11) Labs Laboratory Tests Test 08/26/17 03:30 White Blood Count 11.9 TH/MM3 Red Blood Count 5.02 MIL/MM3 Hemoglobin 16.0 GM/DL Hematocrit 46.3 % Mean Corpuscular Volume 92.3 FL Mean Corpuscular Hemoglobin 31.9 PG Mean Corpuscular Hemoglobin Concent 34.5 % Red Cell Distribution Width 13.6 % Platelet Count 266 TH/MM3 Mean Platelet Volume 10.1 FL Neutrophils (%) (Auto) 55.8 % Lymphocytes (%) (Auto) 30.0 % Monocytes (%) (Auto) 8.3 % Eosinophils (%) (Auto) 4.7 % Basophils (%) (Auto) 1.2 % Neutrophils # (Auto) 6.6 TH/MM3 Lymphocytes # (Auto) 3.6 TH/MM3 Monocytes # (Auto) 1.0 TH/MM3 Eosinophils # (Auto) 0.6 TH/MM3 Basophils # (Auto) 0.1 TH/MM3 CBC Comment DIFF FINAL Differential Comment Urine Color LIGHT-YELLOW Urine Turbidity CLEAR Urine pH 5.5 Urine Specific [place] 1.004 Urine Protein NEG mg/dL Urine Glucose (UA) NEG mg/dL Urine Ketones NEG mg/dL Urine Occult Blood NEG Urine Nitrite NEG Urine Bilirubin NEG Urine Urobilinogen LESS THAN 2.0 MG/DL Urine Leukocyte Esterase NEG Urine RBC LESS THAN 1 /hpf Urine WBC LESS THAN 1 /hpf Urine Squamous Epithelial Cells <1 /hpf Microscopic Urinalysis Comment CULT NOT INDICATED Blood Urea Nitrogen 9 MG/DL Creatinine 0.87 MG/DL Random Glucose 108 MG/DL Total Protein 7.9 GM/DL Albumin 4.1 GM/DL Calcium Level 8.9 MG/DL Alkaline Phosphatase 67 U/L Aspartate Amino Transf (AST/SGOT) 15 U/L Alanine Aminotransferase (ALT/SGPT) 27 U/L Total Bilirubin 0.3 MG/DL Sodium Level 142 MEQ/L Potassium Level 3.8 MEQ/L Chloride Level 109 MEQ/L Carbon Dioxide Level 22.6 MEQ/L Anion Gap 10 MEQ/L Estimat Glomerular Filtration Rate 95 ML/MIN Thyroid Stimulating Hormone 3rd Gen 1.700 uIU/ML Salicylates Level 4.2 MG/DL Urine Opiates Screen NEG Acetaminophen Level LESS THAN 2.0 MCG/ML Urine Barbiturates Screen NEG Urine Amphetamines Screen NEG Urine Benzodiazepines Screen NEG Urine Cocaine Screen NEG Urine Cannabinoids Screen NEG Ethyl Alcohol Level 169 MG/DL [facility] Medical Decision Making Medical Screen Exam Complete: Yes Emergency Medical Condition: Yes Interpretation(s) Laboratory Tests Test 08/26/17 03:30 White Blood Count 11.9 TH/MM3 Red Blood Count 5.02 MIL/MM3 Hemoglobin 16.0 GM/DL Hematocrit 46.3 % Mean Corpuscular Volume 92.3 FL Mean Corpuscular Hemoglobin 31.9 PG Mean Corpuscular Hemoglobin Concent 34.5 % Red Cell Distribution Width 13.6 % Platelet Count 266 TH/MM3 Mean Platelet Volume 10.1 FL Neutrophils (%) (Auto) 55.8 % Lymphocytes (%) (Auto) 30.0 % Monocytes (%) (Auto) 8.3 % Eosinophils (%) (Auto) 4.7 % Basophils (%) (Auto) 1.2 % Neutrophils # (Auto) 6.6 TH/MM3 Lymphocytes # (Auto) 3.6 TH/MM3 Monocytes # (Auto) 1.0 TH/MM3 Eosinophils # (Auto) 0.6 TH/MM3 Basophils # (Auto) 0.1 TH/MM3 CBC Comment DIFF FINAL Differential Comment Urine Color LIGHT-YELLOW Urine Turbidity CLEAR Urine pH 5.5 Urine Specific [place] 1.004 Urine Protein NEG mg/dL Urine Glucose (UA) NEG mg/dL Urine Ketones NEG mg/dL Urine Occult Blood NEG Urine Nitrite NEG Urine Bilirubin NEG Urine Urobilinogen LESS THAN 2.0 MG/DL Urine Leukocyte Esterase NEG Urine RBC LESS THAN 1 /hpf Urine WBC LESS THAN 1 /hpf Urine Squamous Epithelial Cells <1 /hpf Microscopic Urinalysis Comment CULT NOT INDICATED Blood Urea Nitrogen 9 MG/DL Creatinine 0.87 MG/DL Random Glucose 108 MG/DL Total Protein 7.9 GM/DL Albumin 4.1 GM/DL Calcium Level 8.9 MG/DL Alkaline Phosphatase 67 U/L Aspartate Amino Transf (AST/SGOT) 15 U/L Alanine Aminotransferase (ALT/SGPT) 27 U/L Total Bilirubin 0.3 MG/DL Sodium Level 142 MEQ/L Potassium Level 3.8 MEQ/L Chloride Level 109 MEQ/L Carbon Dioxide Level 22.6 MEQ/L Anion Gap 10 MEQ/L Estimat Glomerular Filtration Rate 95 ML/MIN Thyroid Stimulating Hormone 3rd Gen 1.700 uIU/ML Salicylates Level 4.2 MG/DL Urine Opiates Screen NEG Acetaminophen Level LESS THAN 2.0 MCG/ML Urine Barbiturates Screen NEG Urine Amphetamines Screen NEG Urine Benzodiazepines Screen NEG Urine Cocaine Screen NEG Urine Cannabinoids Screen NEG Ethyl Alcohol Level 169 MG/DL Vital Signs Date Time Temp Pulse Resp B/P (MAP) Pulse Ox O2 Delivery O2 Flow Rate FiO2 08/26/17 03:02 99.0 92 18 142/87 (105) 96 Differential Diagnosis Mood disorder versus bipolar disorder versus metabolic abnormality versus intoxication versus other Narrative Course Patient is a 47-year-old male presenting under Vidal act for psychiatric evaluation secondary to calling suicide hotline. Patient's vital signs are stable, he is well-appearing. His answers are short and he becomes defensive. Mental health screening discussed with the patient. Psychiatric screen ordered. Labs reviewed, no acute findings. Patient is medically cleared. Diagnosis Primary Impression: Medical clearance for psychiatric admission Condition: Stable Ree Mendiola Aug 26, 2017 04:35
[2017-08-26 06:09] VITALS: BP 117/77; PULSE 88; RESP 20; TEMP 98.2; O2SAT 94
[2017-08-26] MEDS ORDERED: ASPI-516 CHEW (07:59)
[2017-08-26] MEDS ORDERED: GABA100C4 PO (07:59)
--- NOTE | 2017-08-26 10:38 | PD ---
Physical Exam Date Seen by Provider: Aug 26, 2017 Time Seen by Provider: 10:37 Narrative 47-year-old male previously brought in under the Vidal acted medically cleared for psychiatric evaluation, has been seen by psychiatric staff and deemed psychiatrically stable for discharge. Patient remains medically stable at this time. Please see psychiatric note for follow-up plan. Data Data Last Documented VS Vital Signs Date Time Temp Pulse Resp B/P (MAP) Pulse Ox O2 Delivery O2 Flow Rate FiO2 08/26/17 06:09 98.2 88 20 117/77 (90) 94 Room Air Orders Orders Complete Blood Count With Diff (08/26/17 03:11) Comprehensive Metabolic Panel (08/26/17 03:11) Thyroid Stimulating Hormone (08/26/17 03:11) Urinalysis - C+S If Indicated (08/26/17 03:11) Psych Screen (08/26/17 03:11) Drug Screen, Random Urine (08/26/17 03:11) Alcohol (Ethanol) (08/26/17 03:11) Salicylates (Aspirin) (08/26/17 03:11) Tylenol (Acetaminophen) (08/26/17 03:11) Diet Diabetic (08/26/17 Breakfast) Diet Diabetic (08/26/17 Lunch) Labs Laboratory Tests Test 08/26/17 03:30 White Blood Count 11.9 TH/MM3 Red Blood Count 5.02 MIL/MM3 Hemoglobin 16.0 GM/DL Hematocrit 46.3 % Mean Corpuscular Volume 92.3 FL Mean Corpuscular Hemoglobin 31.9 PG Mean Corpuscular Hemoglobin Concent 34.5 % Red Cell Distribution Width 13.6 % Platelet Count 266 TH/MM3 Mean Platelet Volume 10.1 FL Neutrophils (%) (Auto) 55.8 % Lymphocytes (%) (Auto) 30.0 % Monocytes (%) (Auto) 8.3 % Eosinophils (%) (Auto) 4.7 % Basophils (%) (Auto) 1.2 % Neutrophils # (Auto) 6.6 TH/MM3 Lymphocytes # (Auto) 3.6 TH/MM3 Monocytes # (Auto) 1.0 TH/MM3 Eosinophils # (Auto) 0.6 TH/MM3 Basophils # (Auto) 0.1 TH/MM3 CBC Comment DIFF FINAL Differential Comment Urine Color LIGHT-YELLOW Urine Turbidity CLEAR Urine pH 5.5 Urine Specific [place] 1.004 Urine Protein NEG mg/dL Urine Glucose (UA) NEG mg/dL Urine Ketones NEG mg/dL Urine Occult Blood NEG Urine Nitrite NEG Urine Bilirubin NEG Urine Urobilinogen LESS THAN 2.0 MG/DL Urine Leukocyte Esterase NEG Urine RBC LESS THAN 1 /hpf Urine WBC LESS THAN 1 /hpf Urine Squamous Epithelial Cells <1 /hpf Microscopic Urinalysis Comment CULT NOT INDICATED Blood Urea Nitrogen 9 MG/DL Creatinine 0.87 MG/DL Random Glucose 108 MG/DL Total Protein 7.9 GM/DL Albumin 4.1 GM/DL Calcium Level 8.9 MG/DL Alkaline Phosphatase 67 U/L Aspartate Amino Transf (AST/SGOT) 15 U/L Alanine Aminotransferase (ALT/SGPT) 27 U/L Total Bilirubin 0.3 MG/DL Sodium Level 142 MEQ/L Potassium Level 3.8 MEQ/L Chloride Level 109 MEQ/L Carbon Dioxide Level 22.6 MEQ/L Anion Gap 10 MEQ/L Estimat Glomerular Filtration Rate 95 ML/MIN Thyroid Stimulating Hormone 3rd Gen 1.700 uIU/ML Salicylates Level 4.2 MG/DL Urine Opiates Screen NEG Acetaminophen Level LESS THAN 2.0 MCG/ML Urine Barbiturates Screen NEG Urine Amphetamines Screen NEG Urine Benzodiazepines Screen NEG Urine Cocaine Screen NEG Urine Cannabinoids Screen NEG Ethyl Alcohol Level 169 MG/DL [facility] Medical Record Reviewed: Yes Supervised Visit with KELI: Yes Narrative Course 47-year-old male previously brought in under the Vidal acted medically cleared for psychiatric evaluation, has been seen by psychiatric staff and deemed psychiatrically stable for discharge. Patient remains medically stable at this time. Please see psychiatric note for follow-up plan. Diagnosis Primary Impression: Medical clearance for psychiatric admission Patient Instructions: General Instructions Disposition: 01 DISCHARGE HOME Condition: Stable Carlos Garvin Aug 26, 2017 10:38
--- NOTE | 2017-08-26 13:43 | PD.PSY.CON ---
Provisional Diagnosis Admission Date [place] I. Alcohol induced mood disorder, alcohol use disorder, self reported bipolar [place] II. Deferred [place] III. Diabetes, hypertension, History of Present Illness Service Psychiatry Consult Requested By ER Reason for Consult Suicidal ideation Primary Care Physician Deb Chua MD HPI The patient is 47-year-old man, domiciled with his in [facility], unemployed, with a self-reported psychiatric history of bipolar disorder, about 4 hospitalizations in the past, the last hospitalization was here in [place] in 2016, documentation reviewed, he is not in psychotropics at the moment, alcohol and cannabis use disorder, medical history of diabetes and hypertension, who presents to the emergency department under [facility] act for psychiatric evaluation. As per ER documentation and :Patient allegedly called suicide hotline. He was brought in by the police and states he is no longer suicidal. He reports a history of bipolar disorder, he states medications do not work for him and he wants to try medical marijuana which he states he has been approved for. He has no physical complaints at this time. He denies any previous suicide attempt or current plan. He further denies any hallucinations or delusions. On psychiatric evaluation the patient is calm, cooperative and pleasant. The patient reports that being here is a complete misunderstood. He confirms that yesterday he was taken some wine and after an argument with his he called a suicidal hotline presents frustration, minutes later he had 2 cups arresting him bringing him to the ER. He says that he never stated that he wanted to kill himself. Patient says that he has too many reasons to live for, he love his , has many friends. He denies suicidal and homicidal ideation, he denies visual and auditory hallucinations. He says that he has been getting prescribed marijuana for his depression and anxiety and he has been responding well. The patient is fully oriented 3. No agitation, aggressive behavior, no paranoia no loosening of associations present. Collateral information from his was obtained. She confirms that the patient was drinking alcohol and they had an argument and he called the suicidal hotline. She doesn't have any safety issues discovering. Actually, she will come and picking up once medically clear. Review of Systems Constitutional: DENIES: Diaphoretic episodes, Fatigue, Fever, Weight gain, Weight loss, Chills, Dizziness, Change in appetite, Night Sweats Endocrine: DENIES: Heat/cold intolerance, Polydipsia, Polyuria, Polyphagia Eyes: DENIES: Blurred vision, Diplopia, Eye inflammation, Eye pain, Vision loss , Photosensitivity, Double Vision Ears, nose, mouth, throat: DENIES: Tinnitus, Hearing loss, Vertigo, Nasal discharge, Oral lesions, Throat pain, Hoarseness, Ear Pain, Running Nose, Epistaxis, Sinus Pain, Toothache, Odynophagia Respiratory: DENIES: Apneas, Cough, Snoring, Wheezing, Hemoptysis, Sputum production, Shortness of breath Cardiovascular: DENIES: Chest pain, Palpitations, Syncope, Dyspnea on Exertion , PND, Lower Extremity Edema, Orthopnea, Claudication Gastrointestinal: DENIES: Abdominal pain, Black stools, Bloody stools, Constipation, Diarrhea, Nausea, Vomiting, Difficulty Swallowing, Anorexia Genitourinary: DENIES: Sexual dysfunction, Urinary frequency, Urinary incontinence, Urgency, Hematuria, Dysuria, Nocturia, Penile Discharge, Testicular Pain, Testicular Swelling Musculoskeletal: DENIES: Joint pain, Muscle aches, Stiffness, Joint Swelling, Back pain, Neck pain Integumentary: DENIES: Abnormal pigmentation, Nail changes, Pruritus, Rash Hematologic/lymphatic: DENIES: Bruising, Lymphadenopathy Immunologic/allergic: DENIES: Eczema, Urticaria Neurologic: DENIES: Abnormal gait, Headache, Localized weakness, Paresthesias, Seizures, Speech Problems, Tremor, Poor Balance Psychiatric: DENIES: Anxiety, Confusion, Mood changes, Depression, Hallucinations, Agitation, Suicidal Ideation, Homicidal Ideation, Delusions Past Family Social History Coded Allergies: penicillin G (Unverified Allergy, Intermediate, swollen, 08/26/17) SWOLLEN TONGUE Reported Medications Aspirin (Aspirin) 81 Mg Chew, 81 MG CHEW DAILY, TAB 0 Refills 08/26/17 Gabapentin (Gabapentin) 100 Mg Cap, PO TID, #90 CAP 0 Refills 08/26/17 Atenolol (Atenolol) 100 Mg Tab, 100 MG PO DAILY for Blood Pressure Management, # 30 TAB 0 Refills 10/07/16 Amlodipine (Amlodipine) 5 Mg Tab, 10 MG PO DAILY for Blood Pressure Management, #30 TAB 0 Refills 08/05/16 Metformin (Metformin) 1,000 Mg Tab, 1000 MG PO BIDPC for Blood Sugar Management , #60 TAB 0 Refills With meals 08/05/16 Glipizide (Glipizide) 10 Mg Tab, 10 MG PO DAILY for Blood Sugar Management, #30 TAB 0 Refills Take 30 minutes before a meal 08/05/16 Atorvastatin (Atorvastatin) 40 Mg Tab, 80 MG PO HS for Cholesterol Management, # 30 TAB 0 Refills 08/05/16 Fenofibrate (Fenofibrate) 145 Mg Tab, 145 MG PO DAILY, #30 TAB 0 Refills 08/05/16 Discontinued Reported Medications Aspirin (Aspirin) 81 Mg Tabdr, 81 MG PO DAILY, TAB 08/05/16 Paroxetine (Paxil) 20 Mg Tab, 20 MG PO DAILY, #30 TAB 0 Refills 08/05/16 Family Psych History No family psychiatric history Social History Patient was born and raised in [place], he has been living in [place] for 7 years , no kids, he lives in [facility] with his Patient's Strengths (min. 2) Support of his Physical Exam Vital Signs Vital Signs Date Time Temp Pulse Resp B/P (MAP) Pulse Ox O2 Delivery O2 Flow Rate FiO2 08/26/17 10:58 08/26/17 06:09 98.2 88 20 94 Room Air Lab Results Test 08/26/17 03:30 White Blood Count 11.9 TH/MM3 Red Blood Count 5.02 MIL/MM3 Hemoglobin 16.0 GM/DL Hematocrit 46.3 % Mean Corpuscular Volume 92.3 FL Mean Corpuscular Hemoglobin 31.9 PG Mean Corpuscular Hemoglobin Concent 34.5 % Red Cell Distribution Width 13.6 % Platelet Count 266 TH/MM3 Mean Platelet Volume 10.1 FL Neutrophils (%) (Auto) 55.8 % Lymphocytes (%) (Auto) 30.0 % Monocytes (%) (Auto) 8.3 % Eosinophils (%) (Auto) 4.7 % Basophils (%) (Auto) 1.2 % Neutrophils # (Auto) 6.6 TH/MM3 Lymphocytes # (Auto) 3.6 TH/MM3 Monocytes # (Auto) 1.0 TH/MM3 Eosinophils # (Auto) 0.6 TH/MM3 Basophils # (Auto) 0.1 TH/MM3 CBC Comment DIFF FINAL Differential Comment Urine Color LIGHT-YELLOW Urine Turbidity CLEAR Urine pH 5.5 Urine Specific [place] 1.004 Urine Protein NEG mg/dL Urine Glucose (UA) NEG mg/dL Urine Ketones NEG mg/dL Urine Occult Blood NEG Urine Nitrite NEG Urine Bilirubin NEG Urine Urobilinogen LESS THAN 2.0 MG/DL Urine Leukocyte Esterase NEG Urine RBC LESS THAN 1 /hpf Urine WBC LESS THAN 1 /hpf Urine Squamous Epithelial Cells <1 /hpf Microscopic Urinalysis Comment CULT NOT INDICATED Blood Urea Nitrogen 9 MG/DL Creatinine 0.87 MG/DL Random Glucose 108 MG/DL Total Protein 7.9 GM/DL Albumin 4.1 GM/DL Calcium Level 8.9 MG/DL Alkaline Phosphatase 67 U/L Aspartate Amino Transf (AST/SGOT) 15 U/L Alanine Aminotransferase (ALT/SGPT) 27 U/L Total Bilirubin 0.3 MG/DL Sodium Level 142 MEQ/L Potassium Level 3.8 MEQ/L Chloride Level 109 MEQ/L Carbon Dioxide Level 22.6 MEQ/L Anion Gap 10 MEQ/L Estimat Glomerular Filtration Rate 95 ML/MIN Thyroid Stimulating Hormone 3rd Gen 1.700 uIU/ML Salicylates Level 4.2 MG/DL Urine Opiates Screen NEG Acetaminophen Level LESS THAN 2.0 MCG/ML Urine Barbiturates Screen NEG Urine Amphetamines Screen NEG Urine Benzodiazepines Screen NEG Urine Cocaine Screen NEG Urine Cannabinoids Screen NEG Ethyl Alcohol Level 169 MG/DL Mental Status Examination Appearance: Appropriate Consciousness: Alert Orientation: x4 Motor Activity: Normal gait Speech: Unremarkable Language: Adequate Fund of Knowledge: Adequate Attention and Concentration: Adequate Memory: Unremarkable Mood: Appropriate Affect: Appropriate Thought Process & Associations: Intact Thought Content: Appropriate Hallucination Type: None Delusion Type: None Suicidal Ideation: No Suicidal Plan: No Suicidal Intention: No Homicidal Ideation: No Homicidal Plan: No Homicidal Intention: No Insight: Adequate Judgment: Adequate Assessment & Plan Problem List: (1) Alcohol abuse with alcohol-induced mood disorder ICD Codes: F10.14 - Alcohol abuse with alcohol-induced mood disorder Assessment & Plan: The patient does not meet criteria for involuntary psychiatric admission at this moment. The patient denies depression, he denies anxiety, he denies jade and psychosis. He denies suicidal and homicidal ideation, he denies visual and auditory hallucinations. Patient is now clinically sober. Recent suicidal ideation was most probably secondary to frustration after argument with his , exacerbated by alcohol intoxication. Assessment & Plan Estimated LOS: Rex Castro MD Aug 26, 2017 13:43
== END 2017-08-26 11:01 | disposition home or self-care (01) ==
LOC: NEPD 02:53 → NEPJ 11:01
DX: F10.14 Alcohol abuse with alcohol-induced mood disorder (principal); E11.9 Type 2 diabetes mellitus without complications; E78.00 Pure hypercholesterolemia, unspecified; I10 Essential (primary) hypertension; F31.9 Bipolar disorder, unspecified; F17.200 Nicotine dependence, unspecified, uncomplicated; Y90.6 Blood alcohol level of 120-199 mg/100 ml; Z79.84 Long term (current) use of oral hypoglycemic drugs; Z79.899 Other long term (current) drug therapy
CPT/HCPCS: 80053; 80307; 81001; 84443; 85025; 99284